=== PATIENT | male | born 1950 | race Hispanic/Latino ===

== ENCOUNTER 2019-08-01 16:10 | Inpatient (IN) | payer OTHER ==
[~2019-08-01] VITALS: Ht 177.8 cm; Wt 91.2 kg
--- OUTSIDE RECORDS SUMMARY | 2019-08-01 16:13 | XMS REPORT ---
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 Allergies, Adverse Reactions, Alerts Allergy Name Allergy Type Status Severity Reaction(s) Onset Date Inactive Date Treating Clinician Comments No Known Allergies DA Active U 2019-05-29 00:00:00 No Known Contrast Allergies DA Active U 2007-05-13 00:00:00 No Known Drug Allergies DA Active U 2007-05-13 00:00:00 No Known Food Allergies DA Active U 2007-05-13 00:00:00 Medications This patient has no known medications. Results Test Description Test Time Test Comments Text Results Atomic Results Result Comments URINALYSIS COMPLETE 2019-05-29 15:00:00 UA COLOR (test code=COLU) YELLOW YELLOW UA APPEARANCE (test code=APPU) CLEAR CLEAR UA GLUCOSE DIPSTICK (test code=DGLUU) 200 (2+) mg/dL NEGATIVE UA BILIRUBIN DIPSTICK (test code=BILU) NEGATIVE mg/dL NEGATIVE UA KETONE DIPSTICK (test code=KETU) NEGATIVE mg/dL NEGATIVE UA SPECIFIC GRAVITY (test code=SGU) 1.032 1.001-1.035 UA BLOOD DIPSTICK (test code=ELLEN) Negative mg/dL NEGATIVE UA PH DIPSTICK (test code=ASHLEY) 5.5 5.0-8.0 UA PROTEIN DIPSTICK (test code=PROU) 70 (1+) mg/dL NEGATIVE UA UROBILINIOGEN DIPSTICK (test code=URO) 2.0 (1+) mg/dL NEGATIVE UA NITRITE DIPSTICK (test code=RINKU) NEGATIVE NEGATIVE UA LEUKOCYTE ESTERASE W REFLEX (test code=LEUUR) NEGATIVE Oliver/uL NEGATIVE UA WBC (test code=WBCU) 0-5 per HPF 0-5 UA RBC (test code=RBCU) 3-5 #/HPF 0-5 UA EPITHELIAL CELLS (test code=EPIU) FEW per HPF FEW UA BACTERIA (test code=BACU) NONE SEEN #/HPF NONE UA HYALINE CAST (test code=HYALU) >20 #/LPF 0-5 UA MUCUS (test code=MUCU) MANY #/LPF FEW Urine Source? Clean CatchURINALYSIS [id number] 14:58:00* Test Item Value Reference Range Comments UA COLOR (test code=COLU) YELLOW YELLOW UA APPEARANCE (test code=APPU) CLEAR CLEAR UA GLUCOSE DIPSTICK (test code=DGLUU) 200 (2+) mg/dL NEGATIVE UA BILIRUBIN DIPSTICK (test code=BILU) NEGATIVE mg/dL NEGATIVE UA KETONE DIPSTICK (test code=KETU) NEGATIVE mg/dL NEGATIVE UA SPECIFIC GRAVITY (test code=SGU) 1.032 1.001-1.035 UA BLOOD DIPSTICK (test code=ELLEN) Negative mg/dL NEGATIVE UA PH DIPSTICK (test code=ASHLEY) 5.5 5.0-8.0 UA PROTEIN DIPSTICK (test code=PROU) 70 (1+) mg/dL NEGATIVE UA UROBILINIOGEN DIPSTICK (test code=URO) 2.0 (1+) mg/dL NEGATIVE UA NITRITE DIPSTICK (test code=RINKU) NEGATIVE NEGATIVE UA LEUKOCYTE ESTERASE W REFLEX (test code=LEUUR) NEGATIVE Oliver/uL NEGATIVE UA WBC (test code=WBCU) per HPF 0-5 UA RBC (test code=RBCU) per HPF 0-5 UA EPITHELIAL CELLS (test code=EPIU) per HPF Few UA BACTERIA (test code=BACU) per HPF NONE Urine Source? Clean CatchBASIC METABOLIC [id number] 13:11:00* Test Item Value Reference Range Comments SODIUM (test code=NA) 132 mmol/L 136-145 POTASSIUM (test code=K) 4.1 mmol/L 3.5-5.1 CHLORIDE (test code=CL) 100.0 mmol/L 98-107 CARBON DIOXIDE (test code=CO2) 22.0 mmol/L 21-32 ANION GAP (test code=GAP) 14.1 10-20 GLUCOSE (test code=GLU) 299 mg/dL 74-106 BLOOD UREA NITROGEN (test code=BUN) 14 mg/dL 7-18 GLOMERULAR FILTRATION RATE (test code=GFR) 47 mL/min >=60 Estimated GFR by using Modified MDRD formula.Chronic kidney disease is defined as either kidney damageor GFR <60 mL/min/1.73 m2 for >3 months. CREATININE (test code=CREAT) 1.50 mg/dL 0.7-1.3 BUN/CREATININE RATIO (test code=BUN/CREA) 9.5 10-20 CALCIUM (test code=CA) 8.7 mg/dL 8.5-10.1 HEPATIC FUNCTION [id number] 13:11:00* Test Item Value Reference Range Comments TOTAL PROTEIN (test code=PROT) 7.8 gram/dL 6.4-8.2 ALBUMIN (test code=ALB) 3.9 g/dL 3.4-5.0 GLOBULIN (test code=GLOB) 3.9 gram/dL 2.7-4.2 ALBUMIN/GLOBULIN RATIO (test code=A/G) 1.0 0.75-1.50 BILIRUBIN TOTAL (test code=BILT) 0.30 mg/dL 0.0-1.0 BILIRUBIN DIRECT (test code=BILD) 0.10 mg/dL 0.0-0.20 SGOT/AST (test code=AST) 51 IUnit/L 15-37 SGPT/ALT (test code=ALT) 43 IUnit/L 12-78 ALKALINE PHOSPHATASE TOTAL (test code=ALKP) 63 IUnit/L 45-117 Note change in reference range due to change in reagent. [id number] 13:11:00* Test Item Value Reference Range Comments LIPASE (test code=LIP) 194 U/L 73.0-393.0 BASIC METABOLIC [id number] 13:01:00* Test Item Value Reference Range Comments SODIUM (test code=NA) 132 mmol/L 136-145 POTASSIUM (test code=K) 4.1 mmol/L 3.5-5.1 CHLORIDE (test code=CL) 100.0 mmol/L 98-107 CARBON DIOXIDE (test code=CO2) mmol/L 21-32 ANION GAP (test code=GAP) 10-20 GLUCOSE (test code=GLU) mg/dL 74-106 BLOOD UREA NITROGEN (test code=BUN) mg/dL 7-18 GLOMERULAR FILTRATION RATE (test code=GFR) mL/min >=60 CREATININE (test code=CREAT) mg/dL 0.7-1.3 BUN/CREATININE RATIO (test code=BUN/CREA) 10-20 CALCIUM (test code=CA) mg/dL 8.5-10.1 HEPATIC FUNCTION [id number] 13:01:00* Test Item Value Reference Range Comments TOTAL PROTEIN (test code=PROT) gram/dL 6.4-8.2 ALBUMIN (test code=ALB) g/dL 3.4-5.0 GLOBULIN (test code=GLOB) gram/dL 2.7-4.2 ALBUMIN/GLOBULIN RATIO (test code=A/G) 0.75-1.50 BILIRUBIN TOTAL (test code=BILT) mg/dL 0.0-1.0 BILIRUBIN DIRECT (test code=BILD) mg/dL 0.0-0.20 SGOT/AST (test code=AST) IUnit/L 15-37 SGPT/ALT (test code=ALT) IUnit/L 12-78 ALKALINE PHOSPHATASE TOTAL (test code=ALKP) IUnit/L 45-117 [id number] 13:01:00* Test Item Value Reference Range Comments LIPASE (test code=LIP) U/L 73.0-393.0 CBC W/O [id number] 12:49:00* Test Item Value Reference Range Comments WHITE BLOOD CELL (test code=WBC) 6.5 K/mm3 4.5-12.5 RED BLOOD CELL (test code=RBC) 4.56 mill/mm3 4.0-5.8 HEMOGLOBIN (test code=HGB) 14.8 gram/dL 13.0-17.5 HEMATOCRIT (test code=HCT) 43.8 % 42.0-52.0 MEAN CELL VOLUME (test code=MCV) 96.1 fL 80-98 MEAN CELL HGB (test code=MCH) 32.5 picogram 27.0-33.0 MEAN CELL HGB CONCETRATION (test code=MCHC) 33.8 gram/dL 33.0-36.0 RED CELL DISTRIBUTION WIDTH (test code=RDW) 12.6 % 11.6-16.2 PLATELET COUNT (test code=PLT) 179 K/mm3 150-450 MEAN PLATELET VOLUME (test code=MPV) 10.8 fL 6.7-11.0 CBC W/O [id number] 12:48:00* Test Item Value Reference Range Comments WHITE BLOOD CELL (test code=WBC) K/mm3 4.5-12.5 RED BLOOD CELL (test code=RBC) mill/mm3 4.0-5.8 HEMOGLOBIN (test code=HGB) 14.8 gram/dL 13.0-17.5 HEMATOCRIT (test code=HCT) 43.8 % 42.0-52.0 MEAN CELL VOLUME (test code=MCV) fL 80-98 MEAN CELL HGB (test code=MCH) picogram 27.0-33.0 MEAN CELL HGB CONCETRATION (test code=MCHC) gram/dL 33.0-36.0 RED CELL DISTRIBUTION WIDTH (test code=RDW) % 11.6-16.2 PLATELET COUNT (test code=PLT) K/mm3 150-450 MEAN PLATELET VOLUME (test code=MPV) fL 6.7-11.0
[2019-08-01] MEDS ORDERED: SODIUM CHLORIDE 0.9% 1000ML 1,000 ML IV STA ×2 (16:43→18:16)
[2019-08-01] MEDS ORDERED: ONDANSETRON HCL INJ 2MG/ML 2ML 2 MG/ML VIAL IV NR (17:00)
[2019-08-01] MEDS ORDERED: ACETAMINOPHEN 1000 MG/100 ML IV NR (17:00)
[2019-08-01] MEDS ORDERED: PANTOPRAZOLE 40 MG 10ML VIAL IV NR (17:00)
--- NOTE | 2019-08-01 17:15 | Diagnostic Imaging Report ---
EXAMINATION: CHEST SINGLE (PORTABLE) INDICATION: Nausea, vomiting, diarrhea, fever. COMPARISON: None FINDINGS: TUBES and LINES: None. LUNGS: Lungs are moderately inflated. There is no evidence of pneumonia or pulmonary edema. PLEURA: No pleural effusion or pneumothorax. HEART AND MEDIASTINUM: The cardiomediastinal silhouette is moderately enlarged. BONES AND SOFT TISSUES: No acute osseous abnormality. UPPER ABDOMEN: No free air under the diaphragm. IMPRESSION: Moderate cardiomegaly without pulmonary edema. No evidence of pneumonia. Signed by: Dr. Kemi Starks MD on 08/01/2019 5:12 PM
[2019-08-01 17:22] LABS: BASOPHILS % 0.3 % (0.0-1.0); EOSINOPHILS % 0.3 % (0.0-6.0); HEMATOCRIT 39.5 % (38.2-49.6); HEMOGLOBIN 13.6 g/dL (14.0-18.0); LYMPHOCYTES # (AUTO) 1.7 (1.0-3.2); LYMPHOCYTES % 12.3 % (18.0-39.1); MEAN CORPUSCULAR HEMOGLOBIN 31.2 pg (28-32); MEAN CORPUSCULAR HGB CONC 34.4 g/dL (31-35); MEAN CORPUSCULAR VOLUME 90.6 fL (81-99); MONOCYTES # (AUTO) 0.7 (0.2-0.8); MONOCYTES % 4.9 % (4.4-11.3); NEUTROPHILS # (AUTO) 11.6 (2.1-6.9); NEUTROPHILS % 81.6 % (38.7-80.0); PLATELET COUNT 251 x10e3/uL (140-360); RED BLOOD COUNT 4.36 x10e6/uL (4.3-5.7); RED CELL DISTRIBUTION WIDTH 12.7 % (11.7-14.4)
[2019-08-01 17:27] LABS: INR 1.04; PROTHROMBIN TIME 14.1 seconds (11.9-14.5)
[2019-08-01 17:28] LABS: PARTIAL THROMBOPLASTIN TIME 34.7 seconds (23.8-35.5)
[2019-08-01 17:36] LABS: ALBUMIN 3.9 g/dL (3.5-5.0); ANION GAP 15.8 mmol/L (8-16); CALCIUM 9.6 mg/dL (8.4-10.2); CREATININE, SERUM 1.25 mg/dL (0.72-1.25); MAGNESIUM 1.6 MG/DL (1.3-2.1); POTASSIUM 3.8 mmol/L (3.5-5.1)
[2019-08-01 17:56] LABS: CREATINE KINASE MB 0.2 ng/mL (0-5.0); THYROID STIMULATING HORMONE 0.631 uIU/mL (0.350-4.940)
[2019-08-01] MEDS ORDERED: SODIUM CHLORIDE 0.9% 1000ML 1,000 ML ONE (18:21)
[2019-08-01] MEDS ORDERED: VANCOMYCIN 1GM/NS 250 ML 250 ML IV ONE (19:15)
[2019-08-01] MEDS: CEFEPIME 2 GM/NS 0.9% 100 ML 100 ML IV SCH (19:19)
[2019-08-01 19:21] LABS: BILIRUBIN,URINE NEGATIVE (NEGATIVE); CLARITY,URINE SL CLOUDY (CLEAR); COLOR,URINE YELLOW (YELLOW); KETONES,URINE NEGATIVE (NEGATIVE); LEUKOCYTE ESTERASE ,URINE NEGATIVE (NEGATIVE); NITRITE,URINE NEGATIVE (NEGATIVE); PROTEIN,URINE DIPSTICK TRACE (NEGATIVE); URINE UROBILINOGEN 0.2 mg/dL (0.2 - 1)
[2019-08-01] MEDS ORDERED: ONDANSETRON HCL INJ 2MG/ML 2ML 2 MG/ML VIAL IV PRN (19:30)
[2019-08-01] MEDS ORDERED: LISINOPRIL10 MG PO (19:31)
[2019-08-01] MEDS ORDERED: LEVEMIR100 UNIT/1 SC (19:31)
[2019-08-01] MEDS ORDERED: PRAVASTATIN SOD20 MG PO (19:31)
[2019-08-01] MEDS ORDERED: LEVOTHYROXINE50 MCG PO (19:31)
[2019-08-01] MEDS ORDERED: AMLODIPINE BESY10 MG PO (19:31)
[2019-08-01] MEDS ORDERED: GLIPIZIDE10 MG PO (19:31)
[2019-08-01] MEDS ORDERED: METFORMIN HCL500 MG PO (19:31)
[2019-08-01] MEDS ORDERED: METOPROLOL SUCC50 MG PO (19:31)
[2019-08-01] MEDS ORDERED: GABAPENTIN100 MG PO (19:31)
[2019-08-01 19:41] LABS: BACTERIA,URINE RARE /HPF; EPITHELIAL CELLS,URINE FEW /LPF; RBC,URINE 0-5 /HPF (0-5); WBC,URINE (MAN) 0-5 /HPF (0-5)
[2019-08-01] MEDS: SODIUM CHLORIDE 0.9% 1000ML 1,000 ML IV SCH (19:44)
[2019-08-01] MEDS ORDERED: DEXTROSE 50% SYRINGE 50 ML IV PRN (19:45)
--- NOTE | 2019-08-01 20:10 | NUR ---
RECEIVED PATIENT FROM ER AOX4, NO SIGNS OF DISTRESS NOTED. FAMILY MEMBER PRESENT AT BEDSIDE AND ANTIBIOTIC AND FLUIDS RUNNING AT ORDERED RATE. BED IS LOCKED AND IN LOWEST POSITION, BOTH SIDE RAILS ARE UP, CALL LIGHT WITHIN REACH, WILL CONTINUE TO MONITOR.
[2019-08-01] MEDS ORDERED: SODIUM CHLORIDE 0.9% 50ML 50 ML ONE (21:25)
[2019-08-01] MEDS ORDERED: IOPAMIDOL 370 MG/ML 200 ML INFUS..BTL INJ ONE (21:26)
--- NOTE | 2019-08-01 21:36 | NUR ---
PATIENT HAS LEFT FOR RADIOLOGY.
[2019-08-01 21:56] VITALS: BP 122/69
--- NOTE | 2019-08-01 22:05 | NUR ---
PATIENT HAS RETURNED FROM RADIOLOGY. NO SIGNS OF DISTRESS NOTED. FAMILY MEMBERS PRESENT AT BEDSIDE.
[2019-08-01 22:23] VITALS: BP 122/69
--- NOTE | 2019-08-01 22:29 | Diagnostic Imaging Report ---
CT Abdomen And Pelvis with Intravenous Contrast INDICATION: Nausea, vomiting, diarrhea ^n/v/d ^[id number] ^[id number] TECHNIQUE: Thin collimation axial images obtained from the diaphragm to the level of the pubic symphysis following the uneventful administration of 100 cc of low osmolar, nonionic intravenous contrast. Dose reduction techniques used: Automated exposure control, adjustment of the mAs and/or kVp according to patient size, standardized low-dose protocol, and/or iterative reconstruction technique. RADIATION DOSE: Total DLP: 650.9 mGy*cm Estimated effective dose: (DLP x 0.015 x size factor) mSv CTDIvol has been reviewed. It is below the limits set by the Radiation Protocol Committee (RPC). COMPARISON: None. ABDOMEN FINDINGS: Lung Bases: Mild hyperinflation and bibasilar atelectasis. The heart is top normal in size. There are prominent pericardial fat pads. Liver: Normal attenuation. No evidence for soft tissue mass. Subcentimeter calcified granuloma in the left lobe. Gallbladder: Present and appears normal. No biliary ductal dilatation. Pancreas: Mild fatty atrophy. No mass or ductal dilatation. Spleen: Normal in size. No evidence of mass.. Adrenal Glands: No evidence for mass. Kidneys: Right: Normal enhancement. No soft tissue mass. No hydronephrosis. Left: Normal enhancement. No soft tissue mass. No hydronephrosis. Lymph Nodes: No enlarged abdominal or periaortic lymph nodes. Aorta: Normal in diameter with scattered calcifications PELVIS FINDINGS: Bowel: Stomach: Normal. Small Bowel: Normal in caliber. Several loops of terminal ileum have mildly hyperemic flannery but no dilatation or mesenteric edema. Large Bowel: Fluid throughout the large bowel. Mild mural thickening of the cecum and ascending colon. No significant pericolonic inflammation. Appendix: Normal appendix. Bladder: Well distended and normal. Prostate gland and seminal vesicles are normal in morphology. Peritoneum/retroperitoneum: No free fluid or fluid collection Bones: Mild generative changes of the spine. Soft tissues: Surgical clips in the inguinal regions. IMPRESSION: Mural thickening and hyperemia of the right colon and terminal ileum suggestive of enterocolitis. No bowel obstruction. Normal appendix. Signed by: Dr. Kimo Bradley MD on 08/01/2019 10:26 PM
[2019-08-01 22:34] VITALS: BP 122/69
[2019-08-02] VITALS (8 sets, daily range): BP systolic 118–142; BP diastolic 62–83
[2019-08-02] MEDS: ACETAMINOPHEN 1000 MG/100 ML IV PRN ×2 (00:45→16:43)
[2019-08-02] MEDS: INSULIN LISPRO 100 UNIT/1 ML 3ML VIAL SQ SCH ×5 (06:00→20:25)
[2019-08-02 06:08] LABS: BASOPHILS % 0.3 % (0.0-1.0); EOSINOPHILS % 0.1 % (0.0-6.0); HEMATOCRIT 34.4 % (38.2-49.6); HEMOGLOBIN 11.4 g/dL (14.0-18.0); LYMPHOCYTES # (AUTO) 1.7 (1.0-3.2); LYMPHOCYTES % 18.8 % (18.0-39.1); MEAN CORPUSCULAR HEMOGLOBIN 30.9 pg (28-32); MEAN CORPUSCULAR HGB CONC 33.1 g/dL (31-35); MEAN CORPUSCULAR VOLUME 93.2 fL (81-99); MONOCYTES # (AUTO) 0.5 (0.2-0.8); MONOCYTES % 5.9 % (4.4-11.3); NEUTROPHILS # (AUTO) 6.5 (2.1-6.9); NEUTROPHILS % 74.6 % (38.7-80.0); PLATELET COUNT 213 x10e3/uL (140-360); RED BLOOD COUNT 3.69 x10e6/uL (4.3-5.7); RED CELL DISTRIBUTION WIDTH 12.7 % (11.7-14.4)
[2019-08-02 06:34] LABS: ALANINE AMINOTRANSFERASE 7 IU/L (0-55); ALBUMIN/GLOBULIN RATIO 0.9 (0.8-2.0); ALKALINE PHOSPHATASE 38 IU/L (40-150); ANION GAP 12.4 mmol/L (8-16); BLOOD UREA NITROGEN 12 mg/dL (7-26); BUN/CREATININE RATIO 14 (6-25); CALCIUM 8.5 mg/dL (8.4-10.2); CARBON DIOXIDE 22 mmol/L (22-29); CHLORIDE 107 mmol/L (98-107); CREATININE, SERUM 0.87 mg/dL (0.72-1.25); EST GLOMERULAR FILTRATION RATE > 60 ML/MIN (60-); GLUCOSE 116 mg/dL (74-118); POTASSIUM 3.4 mmol/L (3.5-5.1); SODIUM 138 mmol/L (136-145)
--- NOTE | 2019-08-02 07:00 | NUR ---
PATIENT IS AWAKE, ALERT, AND IN STABLE CONDITION WITH NO S/S OF RESPIRATORY DISTRESS. PATIENT DENIES PAIN. IV FLUIDS INFUSING. PRESENT IN ROOM. CALL LIGHT IS WITHIN REACH, PATIENT INSTRUCTED TO CALL FOR ASSISTANCE INSTRUCTED.
[2019-08-02] MEDS: SODIUM CHLORIDE 0.9% 1000ML 1,000 ML IV SCH ×2 (08:13→16:44)
[2019-08-02 08:24] LABS: CREATINE KINASE MB 0.4 ng/mL (0-5.0)
[2019-08-02] MEDS: CEFEPIME 2 GM/NS 0.9% 100 ML 100 ML IV SCH ×2 (09:33→19:46)
[2019-08-02] MEDS ORDERED: POTASSIUM CHLORIDE 10MEQ EA PO NR (10:00)
[2019-08-02] MEDS: METOPROLOL SUCCINATE 50 MG TAB XL PO SCH (10:09)
[2019-08-02] MEDS: GABAPENTIN 100 MG CAP PO SCH (10:09)
[2019-08-02] MEDS: INSULIN GLARGINE 100 UNITS/ML VIAL SQ SCH (10:09)
--- NOTE | 2019-08-02 12:02 | History and Physical ---
PRIMARY CARE PHYSICIAN: Dr. Aneudy Gonzalez. SURGICAL CODER: Dr. Jairo Crandall. CHIEF COMPLAINT: Fever, nausea, vomiting, diarrhea two days. HISTORY OF PRESENT ILLNESS: A 69-year-old male could not recall exactly what he ate or did, but he started to have nausea and vomiting and diarrhea for the past two days. The patient is still having diarrhea. He is otherwise stable. No blood in stool. The patient had some abdominal discomfort. No chest pain. No shortness of breath. PAST MEDICAL HISTORY: Diabetes type 2, on insulin therapy. Dyslipidemia. Hypertension. PAST SURGICAL HISTORY: Left leg surgery. SOCIAL HISTORY: The patient does not smoke or use alcohol. No regular drugs. ALLERGIES: NO KNOWN ALLERGIES. HOME MEDICATION: Norvasc, gabapentin, glipizide, Levemir, levothyroxine, lisinopril, metformin, metoprolol succinate, and pravastatin. PHYSICAL EXAMINATION: VITAL SIGNS: Temperature is 98, blood pressure 118/62, pulse rate 68, respirations 18. GENERAL: The patient is not in acute distress. He is awake. HEENT: Normocephalic, atraumatic. Pupils reactive. Anicteric. NECK: Supple grossly. PULMONARY: Clear. CARDIOVASCULAR: Regular rate and rhythm. ABDOMEN: Soft, some discomfort. No rebound or guarding. EXTREMITIES: No cyanosis or edema. NEUROLOGIC: No gross focal deficit. IMAGING DATA: A CT scan show enteritis. LABORATORY DATA: Sodium is 138, potassium 3.4, chloride 107, bicarb 22, BUN is 12, creatinine 0.8, glucose 116. WBC is 8.8, hemoglobin 11, hematocrit 34, platelets 213. Liver enzyme is normal. IMPRESSION: 1. Acute enteritis. 2. Acute gastroenteritis with diarrhea, persistent. 3. Dehydration. 4. Electrolyte disorder. PLAN: Start the patient on full liquid diet. Antiemetics. IV fluids. Continue antibiotics. Stool for ova and parasite and C. diff toxin. We will monitor the patient closely. MD URIEL Gann/MODL /[id number]
[2019-08-02 16:01] LABS: CREATINE KINASE MB 0.5 ng/mL (0-5.0)
--- NOTE | 2019-08-02 17:13 | Consultation ---
DATE OF CONSULTATION: CHIEF COMPLAINT: Diarrhea and vomiting. HISTORY OF PRESENT ILLNESS: Very pleasant man, who comes in with diarrhea, nausea, and vomiting. The patient reports symptoms started after eating a yogurt. He has some chills and fever, these all are improved. He denies abdominal pain, diarrhea still present, vomiting has resolved. PAST MEDICAL HISTORY: Diabetes, hypertension. PAST SURGICAL HISTORY: See old records. FAMILY HISTORY: Noncontributory. SOCIAL HISTORY: Lives at home. No toxic habits. MEDICATIONS: See list. PHYSICAL EXAMINATION: VITAL SIGNS: Blood pressure 140/80, pulse 70, and temperature 98. GENERAL: Well-nourished man, in no distress. HEENT: No pallor. ABDOMEN: Soft, nontender. EXTREMITIES: No edema. ASSESSMENT AND PLAN: Nausea, vomiting, and diarrhea. The patient has acute gastroenteritis, improving. Still have some diarrhea. No more vomiting. I will recommend to continue with cefepime. Follow closely. Discharge soon. He continues to improve. MD EBONY BaiO/MODL /[id number]
--- NOTE | 2019-08-02 18:59 | NUR ---
PATIENT IS IN STABLE CONDITION WITH NO S/S OF RESPIRATORY DISTRESS. NO PAIN VOICED. IV FLUIDS INFUSING. PRESENT IN ROOM. CALL LIGHT IS WITHIN REACH, PATIENT INSTRUCTED TO CALL FOR ASSISTANCE INSTRUCTED. BEDSIDE REPORT GIVEN TO ONCOMING NURSE.
--- NOTE | 2019-08-02 20:30 | NUR ---
PATIENT IS AOX4, NO SIGNS OF RESPIRATORY DISTRESS NOTED. FAMILY MEMBERS ARE PRESENT AT BEDSIDE, AND PATIENT IS RUNNING ON IV FLUIDS AT ORDERED RATE. BED IS LOCKED IN LOWEST POSITION, BOTH SIDE RAILS ARE UP, CALL LIGHT WITHIN EASY REACH, WILL CONTINUE TO MONITOR.
[2019-08-03] VITALS (7 sets, daily range): BP systolic 121–159; BP diastolic 60–83
[2019-08-03] MEDS: SODIUM CHLORIDE 0.9% 1000ML 1,000 ML IV SCH (00:52)
[2019-08-03 06:28] LABS: BASOPHILS % 0.5 % (0.0-1.0); EOSINOPHILS # (AUTO) 0.1 (0.0-0.4); EOSINOPHILS % 0.6 % (0.0-6.0); HEMOGLOBIN 11.4 g/dL (14.0-18.0); LYMPHOCYTES % 25.1 % (18.0-39.1); MEAN CORPUSCULAR HGB CONC 33.5 g/dL (31-35); MEAN CORPUSCULAR VOLUME 92.4 fL (81-99); MONOCYTES # (AUTO) 0.5 (0.2-0.8); MONOCYTES % 6.2 % (4.4-11.3); NEUTROPHILS # (AUTO) 5.2 (2.1-6.9); NEUTROPHILS % 67.2 % (38.7-80.0); PLATELET COUNT 192 x10e3/uL (140-360); RED BLOOD COUNT 3.68 x10e6/uL (4.3-5.7); RED CELL DISTRIBUTION WIDTH 12.5 % (11.7-14.4)
[2019-08-03] MEDS: CEFEPIME 2 GM/NS 0.9% 100 ML 100 ML IV SCH ×2 (06:39→19:15)
[2019-08-03 06:51] LABS: ANION GAP 13.4 mmol/L (8-16); BLOOD UREA NITROGEN 6 mg/dL (7-26); BUN/CREATININE RATIO 7 (6-25); CALCIUM 8.5 mg/dL (8.4-10.2); CARBON DIOXIDE 21 mmol/L (22-29); CHLORIDE 105 mmol/L (98-107); CREATININE, SERUM 0.84 mg/dL (0.72-1.25); EST GLOMERULAR FILTRATION RATE > 60 ML/MIN (60-); GLUCOSE 97 mg/dL (74-118); POTASSIUM 3.4 mmol/L (3.5-5.1); SODIUM 136 mmol/L (136-145)
[2019-08-03 06:53] LABS: MAGNESIUM 1.7 MG/DL (1.3-2.1); PHOSPHORUS 2.1 MG/DL (2.3-4.7)
[2019-08-03] MEDS: INSULIN LISPRO 100 UNIT/1 ML 3ML VIAL SQ SCH ×4 (07:30→21:00)
--- NOTE | 2019-08-03 07:50 | NUR ---
BEDSIDE ROUNDS COMPLETE. COVERS REMOVED WILL RECHECK TEMP LATER.
--- NOTE | 2019-08-03 07:51 | NUR ---
PAGED DR. CABRERA REGARDING THE PATIENT'S TEMPERATURE. AWAITING A RETURN CALL.
[2019-08-03] MEDS: INSULIN GLARGINE 100 UNITS/ML VIAL SQ SCH (08:00)
--- NOTE | 2019-08-03 08:30 | NUR ---
TEMP RECHECKED 99.8 WITHOUT MEDICATION GIVEN.
[2019-08-03] MEDS: METOPROLOL SUCCINATE 50 MG TAB XL PO SCH (08:48)
[2019-08-03] MEDS: GABAPENTIN 100 MG CAP PO SCH (08:49)
[2019-08-03] MEDS: LEVOTHYROXINE SODIUM 50 MCG TAB PO SCH (08:49)
--- NOTE | 2019-08-03 09:10 | NUR ---
DR. CABRERA TO SEE PT. NEW ORDERS RECEIVED. TEMP IN NOW 99.8
[2019-08-03] MEDS ORDERED: ACETAMINOPHEN 325 MG TAB PO PRN (09:45)
--- NOTE | 2019-08-03 12:00 | NUR ---
EDUCATED ABOUT IMM, SIGNED, FILED IN CHART, WITH COPY LEFT WITH FAMILY AT BEDSIDE.
--- NOTE | 2019-08-03 19:05 | NUR ---
BS rounds completed with morning nurse. Pt alert to name. Lying in bed HOB 60 degrees. Denies pain at this time. Family at bedside. Call garrett within reach. Will continue to monitor.
--- NOTE | 2019-08-03 21:50 | NUR ---
Report called to OBS nurse. Pt transferring to room 185. Pt informed of transfer. Addendum: 08/03/19 at 2236 by Debi Connolly RN wrong chart
--- NOTE | 2019-08-03 21:54 | NUR ---
Pt transferred to room 185 via WC by PCT. No active distress noted. Family at side. Addendum: 08/03/19 at 2237 by Debi Connolly RN wrong chart
[2019-08-04] VITALS: BP 159/72
[2019-08-04 04:00] VITALS: BP 150/76
[2019-08-04 05:52] LABS: BASOPHILS % 0.4 % (0.0-1.0); EOSINOPHILS # (AUTO) 0.1 (0.0-0.4); EOSINOPHILS % 2.5 % (0.0-6.0); HEMATOCRIT 35.2 % (38.2-49.6); HEMOGLOBIN 12.2 g/dL (14.0-18.0); LYMPHOCYTES # (AUTO) 2.4 (1.0-3.2); LYMPHOCYTES % 41.9 % (18.0-39.1); MEAN CORPUSCULAR HEMOGLOBIN 31.4 pg (28-32); MEAN CORPUSCULAR HGB CONC 34.7 g/dL (31-35); MEAN CORPUSCULAR VOLUME 90.7 fL (81-99); MONOCYTES # (AUTO) 0.5 (0.2-0.8); MONOCYTES % 9.5 % (4.4-11.3); NEUTROPHILS # (AUTO) 2.6 (2.1-6.9); NEUTROPHILS % 45.5 % (38.7-80.0); PLATELET COUNT 210 x10e3/uL (140-360); RED BLOOD COUNT 3.88 x10e6/uL (4.3-5.7); RED CELL DISTRIBUTION WIDTH 12.5 % (11.7-14.4)
[2019-08-04 06:26] LABS: ANION GAP 13.4 mmol/L (8-16); BLOOD UREA NITROGEN 5 mg/dL (7-26); BUN/CREATININE RATIO 6 (6-25); CALCIUM 8.9 mg/dL (8.4-10.2); CARBON DIOXIDE 22 mmol/L (22-29); CHLORIDE 106 mmol/L (98-107); CREATININE, SERUM 0.79 mg/dL (0.72-1.25); EST GLOMERULAR FILTRATION RATE > 60 ML/MIN (60-); GLUCOSE 101 mg/dL (74-118); POTASSIUM 3.4 mmol/L (3.5-5.1); SODIUM 138 mmol/L (136-145)
[2019-08-04 08:08] VITALS: BP 143/68
[2019-08-04] MEDS: GABAPENTIN 100 MG CAP PO SCH (08:11)
[2019-08-04] MEDS: SODIUM CHLORIDE 0.9% 1000ML 1,000 ML IV SCH (08:11)
[2019-08-04] MEDS: LEVOTHYROXINE SODIUM 50 MCG TAB PO SCH (08:11)
[2019-08-04] MEDS: CEFEPIME 2 GM/NS 0.9% 100 ML 100 ML IV SCH (08:11)
[2019-08-04] MEDS: METOPROLOL SUCCINATE 50 MG TAB XL PO SCH (08:11)
[2019-08-04 08:14] VITALS: BP 143/68
--- NOTE | 2019-08-04 09:40 | NUR ---
Dr. Minh Edge is at the bedside and replaced suprapubiccatheter Addendum: 08/04/19 at 1010 by Hallie Aburto RN Dr. Minh Edge is at the bedside and replaced suprapubic catheter 24 urdu 5cc balloon lot # [id number] EXP: 10/24/2019
[2019-08-04] MEDS ORDERED: ONDANSETRON ODT8 MG SL (10:15)
[2019-08-04] MEDS ORDERED: ZOFRAN8 MG (10:15)
[2019-08-04] MEDS ORDERED: METRONIDAZOLE500 MG PO (10:16)
[2019-08-04] MEDS ORDERED: QUESTRAN PACKET4 GM PO (10:17)
[2019-08-04] MEDS ORDERED: ONDANSETRON HCL 4 MG ORAL DISINTEGRATING TAB PO PRN (10:30)
--- NOTE | 2019-08-05 07:23 | Discharge Summary ---
PRIMARY CARE PHYSICIAN: Aneudy Gonzalez MD CORRECTIONAL COUNSELOR/CASE MANAGER: Jairo Crandall MD FINAL DIAGNOSES: 1. Acute gastroenteritis, most likely food poisoning. The patient is a cook. 2. Fever, dehydration, resolved. SUMMARY: A 69-year-old male, came in with acute gastroenteritis to confirm with the CT scan. The patient is doing much better now. His diarrhea was worsening because he was taking metformin for his diabetes. The patient is stable. He is able to tolerate all his diet. He is doing well. He will go home with Anant and Abundio. The patient is stable. He will follow up with his family doctor within a week. The patient will continue with his current medication except for metformin and resume when he completely resolved with his loose stool. The patient may return to work next week, Saturday. MD URIEL Gann/ROMÁN /[id number]
== END 2019-08-04 11:12 | disposition home or self-care (01) | DRG 392 ==
LOC: ER 16:10 → ERHOLD 19:33 → MED/SURG3 19:59
PROVIDERS: ADMIT Internal Medicine; ATTEND Internal Medicine
DX: A05.9 Bacterial foodborne intoxication, unspecified (principal); R50.9 Fever, unspecified; E86.0 Dehydration; E11.9 Type 2 diabetes mellitus without complications; Z79.84 Long term (current) use of oral hypoglycemic drugs; T38.3X5A Adverse effect of insulin and oral hypoglycemic [antidiabetic] drugs, initial encounter; E87.8 Other disorders of electrolyte and fluid balance, not elsewhere classified; E78.5 Hyperlipidemia, unspecified; E03.9 Hypothyroidism, unspecified
CPT/HCPCS: 36415; 71045; 74177; 80048; 80053; 81001; 82550; 82553; 82948; 83605; 83690; 83735; 83880; 84100; 84443; 84484; 85025; 85610; 85730; 87040; 87086; 87177; 87328; 87493; 93005; 99284; J1815; J2405; J3370; J7030; Q9967